=== PATIENT | male | born 1950 | race Caucasian/White ===

== ENCOUNTER → 2016-10-27 | Outpatient (CLI) | payer OTHER ==
[~2016-10-27] MED LIST: CALCIUM 600 +1 EA13 PO; EUCERIN CREME57 GM TP; LEXAPRO DPS10 MG PO; MAALOX DPS30 ML PO; MEN'S MULTI-VI1 EACH PO; MOTRIN-DPS600 MG PO; PRESERVISION A1 EAC2 PO; TYLENOL DPS325 MG PO
--- NOTE | 2016-11-15 13:49 | SS ---
ADMIT: 10/27/2016 RM/LOC: [facility] MR#: [id number] [address] [id number] YANICK RAMOS [address], [place] [address] Sleep Study SEX: M AGE: 66 : 1950 STUDY DATE: 10/27/2016 CLINICAL HISTORY: A 66-year-old male, body mass index of 29.4, 68 inches tall, with history of hypersomnia in the sleep lab for evaluation of obstructive sleep apnea. Other symptoms include daytime fatigue, multiple awakenings at night, irregular breathing, and snoring. TECHNICAL DESCRIPTION: Diagnostic polysomnogram performed on night of 10/27/2016, attended by a trained special procedure technologist. DIAGNOSTIC POLYSOMNOGRAM FINDINGS: SLEEP: Total time bed is 420.5 minutes, total sleep time 380.5 minutes, sleep efficiency 89.8%. 84.1% hours spent in stage II sleep. 8.4% hours spent in stage REM. BREATHING: Mild obstructive sleep apnea with apnea-hypopnea index of 6.8. During the study, there were 32 obstructive hypopneas seen in non-REM sleep, and 11 obstructive hypopneas seen in REM sleep with a total of 43 obstructive hypopneas during the study. OXYGEN SATURATION: Mean sleeping oxygen saturation 92%. Lowest oxygen saturation 81%. 7.6%of time was spent saturating 80% to 89%. CARDIAC: Average heart rate is 70 beats per minute. MOVEMENTS/POSITION: During the study, patient slept in supine lateral position with a periodic leg movement index of 10.2. IMPRESSION/PLAN: Mild obstructive sleep apnea with apnea-hypopnea index of 6.8. Recommendations include weight loss, avoidance of sedatives, alcohol. Refrain from driving if excessively sleepy, recommend avoiding sleeping in supine position. CPAP titration and CPAP therapy may be considered if patient has a history of underlying hypertension, coronary artery disease, cerebrovascular disease, mood disorders, insomnia, or excessive daytime sleepiness. Clinical correlation needed. Brandon Chao MD/ sara JOB #: [id number] CC: Reginald Colón MD, Attending Physician Reginald Colón MD, Family Physician Reginald Colón MD
== END | disposition home or self-care (01) ==
LOC: RESC 19:44
DX: G47.10 Hypersomnia, unspecified (principal); G47.33 Obstructive sleep apnea (adult) (pediatric)